=== PATIENT | male | born 1950 | race Caucasian/White ===

== ENCOUNTER → 2017-02-15 | Outpatient (CLI) | payer MEDICARE, OTHER | LOC: GMAB 15:07 | PROVIDERS: ATTEND Family Medicine | DX: D72.819 Decreased white blood cell count, unspecified (principal); D50.8 Other iron deficiency anemias ==

== ENCOUNTER → 2017-06-14 | Outpatient (CLI) | payer MEDICARE, OTHER | END | disposition home or self-care (01) | LOC: GMAB 14:33 | PROVIDERS: ATTEND Family Medicine | DX: Z12.5 Encounter for screening for malignant neoplasm of prostate (principal); R53.82 Chronic fatigue, unspecified; I10 Essential (primary) hypertension | CPT/HCPCS: 84403; 84443; G0103 ==

== ENCOUNTER → 2018-02-20 | Outpatient (CLI) | payer MEDICARE, OTHER | LOC: LAB.O 12:45 | PROVIDERS: ATTEND Surgery | DX: R30.0 Dysuria (principal) ==

== ENCOUNTER → 2018-02-27 | Outpatient (CLI) | payer MEDICARE, OTHER | LOC: LAB.O 12:32 | PROVIDERS: ATTEND Internal Medicine Interventional Cardiology | DX: E78.5 Hyperlipidemia, unspecified (principal) ==

== ENCOUNTER 2018-04-09 13:47 | Emergency (ER) | payer MEDICARE, OTHER ==
[2018-04-09] MEDS ORDERED: TETANUS,DIPHTHERIA,PERTUSSIS 1 EA SYG IM ONE (14:33)
--- NOTE | 2018-04-09 17:05 | ED.PDOC ---
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 Severity: moderate Improving Factors: nothing Worsening Factors: nothing Associated Symptoms: denies symptoms Allergies/Adverse Reactions: Allergies Erythromycin Allergy (Verified 11/14/12 13:34) Review of Systems - Review of Systems Constitutional: States: no symptoms reported EENTM: States: no symptoms reported Respiratory: States: no symptoms reported Cardiology: States: no symptoms reported Gastrointestinal/Abdominal: States: no symptoms reported Genitourinary: States: no symptoms reported Musculoskeletal: States: no symptoms reported Skin: States: see HPI. Denies: change in color, rash Neurological: States: no symptoms reported Endocrine: States: no symptoms reported Hematologic/Lymphatic: States: no symptoms reported All other Systems: Reviewed and Negative Past Medical History (General) - Patient Medical History Hx Cardiac Disorders: Yes Hx Congestive Heart Failure: No Hx Hypertension: Yes Hx Diabetes: No Hx MRSA: No - Social History Hx Tobacco Use: No Family Medical History - Family History Mother Family History: No Known Physical Exam - Physical Exam General Appearance: Alert, Comfortable Eye Exam: bilateral normal Ears, Nose, Throat: hearing grossly normal, normal ENT inspection Neck: full range of motion, normal inspection Respiratory: chest non-tender, lungs clear, normal breath sounds, no respiratory distress Cardiovascular/Chest: normal peripheral pulses, regular rate, rhythm Peripheral Pulses: radial,right: 2+, radial,left: 2+ Gastrointestinal/Abdominal: non tender, soft Extremity: normal range of motion, non-tender, other - PINPOINT LESION, DORSUM OF L HAND. NO HEMORRHAGE. NO RASH. NO LAC. Neurologic: alert, normal mood/affect Skin Exam: warm/dry, other - SEE EXTREMITY EXAM. Lymphatic: no adenopathy Progress - Progress Progress: 04/09/18 17:11 L HAND ACCIDENTAL FINGER STICK WITH BLOOD EXPOSURE. GAVE TDAP IN ER TODAY. PT HAS HOSPITAL PROTOCOL IN PLACE FOR TESTING OF O.R. PT TODAY AND THIS PT. Departure - Departure Clinical Impression: Accidental needlestick injury with exposure to body fluid Disposition: Discharge to Home or Self Care Condition: Good Departure Forms: ED Discharge - Pt. Copy, Patient Portal Self Enrollment Instructions: DI for Accidental Exposure to Body Fluids Diet: resume usual diet Activity: increase activity as tolerated Referrals: Nasir Everett MD [Primary Care Provider] - 1 Week
== END 2018-04-09 15:00 | disposition home or self-care (01) ==
LOC: ER 13:47
DX: Z57.8 Occupational exposure to other risk factors (principal); S61.432A Puncture wound without foreign body of left hand, initial encounter; I10 Essential (primary) hypertension; I51.9 Heart disease, unspecified; Z23 Encounter for immunization; Z88.1 Allergy status to other antibiotic agents; W46.0XXA Contact with hypodermic needle, initial encounter; Y92.69 Other specified industrial and construction area as the place of occurrence of the external cause; Y99.0 Civilian activity done for income or pay

== ENCOUNTER → 2018-08-27 | Outpatient (CLI) | payer MEDICARE, OTHER | LOC: YCFC.O 16:14 | PROVIDERS: ATTEND Family Medicine | DX: J06.9 Acute upper respiratory infection, unspecified (principal) ==

== ENCOUNTER → 2018-08-28 | Outpatient (CLI) | payer MEDICARE, OTHER | LOC: LAB.O 10:43 | PROVIDERS: ATTEND Family Medicine | DX: I25.10 Atherosclerotic heart disease of native coronary artery without angina pectoris (principal); I10 Essential (primary) hypertension; R39.15 Urgency of urination; R53.83 Other fatigue ==

== ENCOUNTER → 2018-08-29 | Outpatient (CLI) | payer MEDICARE, OTHER | LOC: YCFC.O 12:02 | PROVIDERS: ATTEND Family Medicine | DX: R79.89 Other specified abnormal findings of blood chemistry (principal); N28.9 Disorder of kidney and ureter, unspecified; R73.09 Other abnormal glucose; R53.83 Other fatigue ==

== ENCOUNTER → 2018-09-25 | Outpatient (CLI) | payer MEDICARE, OTHER | LOC: LAB.O 14:21 | PROVIDERS: ATTEND Family Medicine | DX: R79.89 Other specified abnormal findings of blood chemistry (principal) ==